=== PATIENT | female | born 1990 | race Caucasian/White ===

== ENCOUNTER 2016-05-01 08:30 | Emergency (ER) | payer SELFPAY ==
--- NOTE | 2016-05-01 09:45 | ER Document Report ---
ED Skin Rash/Insect Bite/Abscs - General Chief Complaint: Abscess Stated Complaint: POSSIBLE CYST Time seen by provider: 09:36 Mode of Arrival: Ambulatory Information source: Patient Notes: Jaci used for history. 25 yo female c/o right vaginal cyst for 2 years. "february-syringe used to get liquid it out-[facility]" She was told to come to the ER to get it taken out. Dx Barotholin Gland cyst. Has since returned to the normal size. It hurts. Has not looked at it directly. No fever. TRAVEL OUTSIDE OF THE [place] IN LAST 30 DAYS: No - Related Data Allergies/Adverse Reactions: No Known Allergies Allergy (Verified 05/01/16 08:37) Past Medical History - Social History Smoking Status: Never Smoker Chew tobacco use (# tins/day): No Frequency of alcohol use: None Drug Abuse: None Family History: None Patient has suicidal ideation: No Patient has homicidal ideation: No Renal/ Medical History: Denies: Hx Peritoneal Dialysis Physical Exam - Vital signs Vitals: Temp Pulse Resp BP Pulse Ox 97.9 F 70 12 112/69 98 05/01/16 08:36 05/01/16 08:36 05/01/16 08:36 05/01/16 08:36 05/01/16 08:36 Interpretation: Normal - General General appearance: Appears well, Alert - HEENT Head: Normocephalic, Atraumatic Eyes: Normal Pupils: PERRL Neck: Supple - Respiratory Respiratory status: No respiratory distress Chest status: Nontender Breath sounds: Normal Chest palpation: Normal - Cardiovascular Rhythm: Regular Heart sounds: Normal auscultation Murmur: No - Genitourinary External exam: Other - right inferior small non red, non firm, no warm bartholin gland swelling, no vaginal discharge - Back Back: Normal, Nontender - Extremities General upper extremity: Normal inspection, Nontender, Normal color, Normal ROM , Normal temperature General lower extremity: Normal inspection, Nontender, Normal color, Normal ROM , Normal temperature, Normal weight bearing. No: Ramses's sign - Neurological Neuro grossly intact: Yes Cognition: Normal Orientation: AAOx4 Shanda Coma Scale Eye Opening: Spontaneous [place] Coma Scale Verbal: Oriented [place] Coma Scale Motor: Obeys Commands [place] Coma Scale Total: 15 Speech: Normal Motor strength normal: LUE, RUE, LLE, RLE Sensory: Normal - Psychological Associated symptoms: Normal affect, Normal mood - Skin Skin Temperature: Warm Skin Moisture: Dry Skin Color: Normal Course - Re-evaluation Re-evalutation: 05/01/16 09:54 is in room for the exam 05/01/16 10:03 jaci used for discharge instructions. 05/01/16 10:06 05/01/16 10:07 I have consulted with the supervisory physician per [facility] Guidelines., dr mohan - Vital Signs Vital signs: Temp Pulse Resp BP Pulse Ox 97.9 F 70 12 112/69 98 05/01/16 08:36 05/01/16 08:36 05/01/16 08:36 05/01/16 08:36 05/01/16 08:36 Discharge - Discharge Clinical Impression: right small bartholin gland cyst Condition: Good Disposition: HOME, SELF-CARE Instructions: Bartholin Gland Cyst or Abscess ([facility]), Ob-Hand Umbrella Ti[facility] Doctors Additional Instructions: schedule appt with obgyn doctor for marsupilalization procedure return to er if it gets larger, warm, red, firm, pus drainage.
[2016-05-01 10:09] VITALS: BP 115/70
== END 2016-05-01 10:09 | disposition home or self-care (01) ==
LOC: ER 08:30
DX: N75.0 Cyst of Bartholin's gland (principal)
CPT/HCPCS: 99282

== ENCOUNTER → 2017-07-24 | Outpatient (CLI) | payer SELFPAY ==
--- NOTE | 2017-07-24 14:02 | RADIOLOGY REPORT (SQ) ---
EXAM DESCRIPTION: U/S OB 14+ TRNABD 1GES W/O DOP COMPLETED DATE/TIME: 07/24/2017 1:26 pm REASON FOR STUDY: ENCTR FOR SUPERVISION OF OTHER NORMAL , SECOND TRIMESTER (Z34.82) Z34.82 ENCOUNTER FOR SUPRVSN OF NORMAL , SECOND TRI COMPARISON: None. TECHNIQUE: Static and Dynamic grayscale imaging performed of gravid uterus using transabdominal appr oach. Additional selected color Doppler and spectral images recorded. All stored on PACS. LIMITATIONS: None. FINDINGS: EGA: 20 weeks 4 days MARISOL: 12/07/2017 EFW: 368+/- 54 grams PERCENTILE: Not calculated LVP: 5.4 cm. PLACENTA: Anterior GRADE: I PRESENTATION: Cephalic. ANATOMY: HEART RATE: 153 beats per minute. FOUR CHAMBER HEART: Visualized. THREE VESSEL CORD: Yes. CORD INSERTION: Visualized. KIDNEYS AND BLADDER: Visualized. Appear normal. STOMACH: Visualized. Appears normal. SPINE: Normal as visualized. BRAIN AND LATERAL VENTRICLES: Visualized. Appear normal. OTHER: No other significant finding. MATERNAL ADNEXA: Maternal ovaries not visualized. CERVICAL LENGTH: 4.5 cm. Closed. OTHER: No other significant finding. IMPRESSION: LIVING INTRAUTERINE . ESTIMATED GESTATIONAL AGE 20 weeks 4 days NO VISUALIZED ANOMALIES. Trimester of : Second trimester - 13 weeks 1 day to 27 weeks 6 days. TECHNICAL DOCUMENTATION: JOB ID: [id number] [employer]- All Rights Reserved Reading location - IP/workstation name: [email or web address]
== END ==
LOC: RAD 12:41
PROVIDERS: ATTEND Nurse Practitioner Women's Health
DX: Z34.82 Encounter for supervision of other normal pregnancy, second trimester (principal)
CPT/HCPCS: 76805

== ENCOUNTER 2017-09-29 21:54 | Outpatient (CLI) | payer SELFPAY ==
[2017-09-30 00:15] LABS: APPEARANCE,URINE CLEAR; BILIRUBIN,URINE NEGATIVE (NEGATIVE); COLOR,URINE STRAW; GLUCOSE, URINE NEGATIVE (NEGATIVE); KETONES,URINE NEGATIVE (NEGATIVE); LEUKOCYTE ESTERASE,URINE TRACE (NEGATIVE); NITRITE,URINE NEGATIVE (NEGATIVE); PROTEIN,URINE NEGATIVE (NEGATIVE); URINE SPECIFIC GRAVITY 1.004; UROBILINOGEN,URINE NEGATIVE mg/dL (<2.0)
[2017-09-30 00:38] LABS: URINE AMPHETAMINES SCREEN NEGATIVE; URINE BARBITURATES SCREEN NEGATIVE; URINE BENZODIAZEPINES SCREEN NEGATIVE; URINE COCAINE SCREEN NEGATIVE; URINE MARIJUANA (THC) SCREEN NEGATIVE; URINE METHADONE SCREEN NEGATIVE; URINE PHENCYCLIDINE SCREEN NEGATIVE
== END 2017-09-29 23:52 | disposition home or self-care (01) ==
LOC: LC 21:54
PROVIDERS: ATTEND Obstetrics & Gynecology Gynecology
PROC: 4A1HXCZ Monitoring of Products of Conception, Cardiac Rate, External Approach (ICD-10-PCS; principal; 2017-09-29)
DX: O47.1 False labor at or after 37 completed weeks of gestation (principal); Z3A.40 40 weeks gestation of pregnancy
CPT/HCPCS: 80307; 81001

== ENCOUNTER 2017-12-01 07:26 | Inpatient (IN) | payer SELFPAY ==
[2017-12-01 08:01] LABS: APPEARANCE,URINE SLIGHTLY-CLOUDY; BILIRUBIN,URINE NEGATIVE (NEGATIVE); COLOR,URINE YELLOW; GLUCOSE, URINE NEGATIVE (NEGATIVE); KETONES,URINE NEGATIVE (NEGATIVE); LEUKOCYTE ESTERASE,URINE SMALL (NEGATIVE); NITRITE,URINE NEGATIVE (NEGATIVE); PROTEIN,URINE NEGATIVE (NEGATIVE); URINE SPECIFIC GRAVITY 1.016; UROBILINOGEN,URINE NEGATIVE mg/dL (<2.0)
[2017-12-01] MEDS ORDERED: OXYTOCIN/NORMAL SALINE 20 UNIT/1,000 ML RTUINJ ONE (08:05)
[2017-12-01] MEDS ORDERED: MISOPROSTOL 0.2 MG TABLET ONE (08:05)
[2017-12-01] MEDS ORDERED: OXYTOCIN 10 UNIT/ML VIAL ONE (08:05)
[2017-12-01] MEDS ORDERED: LIDOCAINE 1% INJ-PF (10 MG/ML) 30 ML SDV ONE (08:05)
[2017-12-01] MEDS ORDERED: RINGERS SOLUTION,LACTATED 1,000 ML IV ONE (08:19)
[2017-12-01] MEDS ORDERED: RINGERS SOLUTION,LACTATED 1,000 ML IV PRN (08:19)
[2017-12-01 08:20] LABS: URINE AMPHETAMINES SCREEN NEGATIVE; URINE BARBITURATES SCREEN NEGATIVE; URINE BENZODIAZEPINES SCREEN NEGATIVE; URINE COCAINE SCREEN NEGATIVE; URINE MARIJUANA (THC) SCREEN NEGATIVE; URINE METHADONE SCREEN NEGATIVE; URINE PHENCYCLIDINE SCREEN NEGATIVE
[2017-12-01 08:53] LABS: ABSOLUTE BASOPHILS # (AUTO) 0.1 10^3/uL (0.0-0.2); ABSOLUTE EOSINOPHILS # (AUTO) 0.1 10^3/uL (0.0-0.6); ABSOLUTE LYMPHOCYTES (AUTO) 1.3 10^3/uL (0.5-4.7); ABSOLUTE MONOCYTES (AUTO) 0.5 10^3/uL (0.1-1.4); ABSOLUTE NEUT (AUTO) 6.1 10^3/uL (1.7-8.2); BASOPHILS % (AUTO) 0.8 % (0-2); EOSINOPHILS % (AUTO) 0.7 % (0-6); HEMOGLOBIN 12.3 g/dL (12.0-15.5); MEAN CORPUSCULAR HEMOGLOBIN 28.4 pg (27.0-33.4); MEAN CORPUSCULAR HGB CONC 33.3 g/dL (32.0-36.0); MEAN CORPUSCULAR VOLUME 85 fl (80-97); MONOCYTES % (AUTO) 6.8 % (3-13); PLATELET COUNT 213 10^3/uL (150-450); RED BLOOD COUNT 4.35 10^6/uL (3.72-5.28); RED CELL DISTRIBUTION WIDTH 15.1 % (11.5-14.0); SEGMENTED NEUTROPHILS % (AUTO) 75.7 % (42-78); TOTAL CELLS COUNTED % (AUTO) 100 %
[2017-12-01] MEDS ORDERED: ACETAMINOPHEN 650 MG SUPP.RECT PR PRN (09:39)
[2017-12-01] MEDS ORDERED: ACETAMINOPHEN WITH CODEINE #3 TABLET PO PRN ×2 (09:39)
[2017-12-01] MEDS ORDERED: DIBUCAINE 1% OINTMENT 28 GM TP PRN (09:39)
[2017-12-01] MEDS ORDERED: OXYTOCIN/NORMAL SALINE 20 UNIT/1,000 ML RTUINJ IV PRN (09:39)
[2017-12-01] MEDS ORDERED: BENZOCAINE/MENTHOL AEROSOL SPRAY 56 ML TOP PRN (09:39)
[2017-12-01] MEDS ORDERED: PROMETHAZINE HCL 25 MG SUPP.RECT PR PRN (09:39)
[2017-12-01] MEDS ORDERED: PROMETHAZINE HCL 25 MG TABLET PO PRN (09:39)
[2017-12-01] MEDS ORDERED: MEASLES,MUMPS&RUBELLA VACC/PF 0.5 ML VIAL SUBCUT PRN (09:39)
[2017-12-01] MEDS ORDERED: ZOLPIDEM TARTRATE 5 MG TABLET PO PRN (09:39)
[2017-12-01] MEDS ORDERED: DIPH/PERTUSS(ACELL)/TETANUS VAC/PF 0.5 ML SYR (>=10YO) IM PRN (09:39)
[2017-12-01] MEDS ORDERED: NA PHOS,M-B/NA PHOS,DI-BA (ADULT) 133 ML ENEMA PR PRN (09:39)
[2017-12-01] MEDS ORDERED: PSEUDOEPHEDRINE HCL 30 MG TABLET PO PRN (09:39)
[2017-12-01] MEDS ORDERED: DIPHENHYDRAMINE HCL 25 MG CAPSULE PO PRN (09:39)
[2017-12-01] MEDS ORDERED: MAGNESIUM HYDROXIDE SUSP 30 ML UDCUP PO PRN (09:39)
[2017-12-01] MEDS ORDERED: GLYCERIN/WITCH HAZEL LEAF 1 EACH MED..PAD TP PRN (09:39)
[2017-12-01] MEDS ORDERED: PROMETHAZINE HCL INJ 25 MG/1 ML VIAL IV PRN (09:39)
[2017-12-01] MEDS ORDERED: IBUPROFEN 800 MG TABLET ONE (09:41)
--- NOTE | 2017-12-01 11:13 | Delivery Summary ---
Del Sum A-C Datetime Report Generated by CPN: 12/01/2017 11:13 DELIVERY PERSONNEL DELIVERY PERSONNEL: [id number] Delivery Doctor:: Mee Coelho CNM Nurse Sports Teacher Certified:: Mee Coelho CNM Labor and Delivery Nurse:: Rita Steele RNsupervisor concrete stone fabricating Nurse:: DIGNA Groves Inventory Specialist Manager/RX SPECIALIST: Judy Lovelace CST Additional Personnel: : Marleni OLIVAREZ RN MATERNAL INFORMATION Delivery Anesthesia: None Medications After Delivery: Pitocin Bolus-Please Comment Meds After Delivery Comment: Pitocin 20 units in 1000 ml nss open for bolus after delivery of placenta Maternal Complications: None Provider Comments: ANGI VIABLE MALE , CORD DOUBLE CLAMPED AND CUT. SPONTANEOUS PLACENTA INTACT WITH 3VC. NO LACERATIONS. MOTHER AND INFANT STABLE IN LABOR AND DELIVERY #7 LABOR SUMMARY EDC: 12/16/2017 00:00 No. Babies in Womb: 1 Attempted: No Labor Anesthesia: None LABOR INFORMATION Reason for Induction: Not Applicable Onset of Labor: 12/01/2017 05:00 Complete Dilatation: 12/01/2017 07:48 Oxytocin: N/A Group B Beta Strep: NEGATIVE Steroids Given: None Reason Steroids Not Administered: Not Applicable MEMBRANES Membranes Rupture Method: Artificial Rupture of Membranes: 12/01/2017 08:16 Length of Rupture (hr): 0.87 Amniotic Fluid Color: Clear Amniotic Fluid Amount: Moderate Amniotic Fluid Odor: Normal STAGES OF LABOR Stage 1 hr: 2 Stage 1 min: 48 Stage 2 hr: 1 Stage 2 min: 20 Stage 3 hr: 0 Stage 3 min: 8 Total Time in Labor hr: 4 Total Time in Labor min: 16 VAGINAL DELIVERY Episiotomy: None Laceration #1: None Laceration Extension #1: N/A Laceration Repair: Not Applicable Sponge Count Correct: N/A Sharps Count Correct: N/A CSECTION DELIVERY Primary Indication: N/A Secondary Indication: N/A CSection Incidence: N/A Labor: N/A Elective: N/A CSection Incision: N/A BABY A INFORMATION Infant Delivery Date/Time: 12/01/2017 09:08 Method of Delivery: Vaginal Born in Route : No : N/A Forceps: N/A Vacuum Extraction: N/A Shoulder Dystocia : No PRESENTATION/POSITION BABY A Presentation: Cephalic Cephalic Presentation: Vertex Vertex Position: Left Occipital Anterior Breech Presentation: N/A PLACENTA INFORMATION BABY A Placenta Delivery Time : 12/01/2017 09:16 Placenta Method of Delivery: Spontaneous Placenta Status: Delivered SCORES BABY A Heart Rate 1 min: >100 bpm Resp Effort 1 min: Good Cry Reflex Irritability 1 min: Cough or Sneeze or Pulls Away Muscle Tone 1 min: Active Motion Color 1 min: Body [place], Extremities Blue Resuscitation Effort 1 min: Tactile Stimulation SCORE 1 MIN: 9 Heart Rate 5 min: >100 bpm Resp Effort 5 min: Good Cry Reflex Irritability 5 min: Cough or Sneeze or Pulls Away Muscle Tone 5 min: Active Motion Color 5 min: Body [place], Extremities Blue Resuscitation Effort 5 min: N/A SCORE 5 MIN: 9 INFORMATION BABY A Gestational Age at Delivery: 37.6 Gestational Status: Early Term- 37- 38.6 Weeks Infant Outcome : Liveborn Condition : Stable Infant Sex: Male IDENTIFICATION BABY A Verification Date/Time: 12/01/2017 09:27 ID Band Number: [id number] Mother's Name Verified: Yes RN Verifying : Nathanael Steele RN Additional Verifying Personnel: Halima Olivarez RN WEIGHT/LENGTH BABY A Birthweight (gm): 3780 Infant Weight (lb): 8 Infant Weight (oz): 5 Length (in): 21.00 Length (cm): 53.34 CORD INFORMATION BABY A No. Cord Vessels: 3 Nuchal Cord : N/A Cord Blood Taken: Yes-For Eval (Mom's Blood Type - or O+) Infant Suction: None ASSESSMENT BABY A Complications: Meconium Infant Complications- Other: terminal mec noted Physical Findings at Delivery: Within Normal Limits Respirations: Appears Normal Skin to Skin: Yes Wet Pour Supervisor/ALS Called : No Infant Care By: Padmini Steele RN/ S Camp RNC Transferred To: Remains with Mother BABY B INFORMATION : N/A SIGNATURES Assignment: Mickie Daly MD Signature: with User ID: [email or web address] : with User ID: [email or web address] : I was personally available for consultation and serving as supervising physician for the MLP.
--- NOTE | 2017-12-01 12:51 | Admission Physical ---
Datetime Report Generated by CPN: 12/01/2017 12:51 CURRENT ADMISSION Chief Complaint: Uterine Contractions Indication for Induction: Not Applicable Admit Impression : Term, Intrauterine Admit Plan: Admit to Unit; Initiate Labor Protocol ALLERGIES Medication Allergies: No Medication Allergies: No Known Allergies (09/29/2017) Latex: No Latex Allergies OBSTETRICAL HISTORY EDC: 12/16/2017 00:00 : 3 Para: 2 Term: 2 : 0 SAB: 0 IAB: 0 Ectopic: 0 Livin Cesareans: 0 VBACs: 0 Multiple Births: 0 Gestational Diabetes: No Rh Sensitization: No Incompetent Cervix: No YASMIN: No Infertility: No ART Treatment: No Uterine Anomaly: No IUGR: No Hx Previous C/S: No Macrosomia: No Hx Loss/Stillborn: No PIH: No Hx : No Placenta Previa/Abruption: No Depression/PP Depression: No PTL/PROM: No Post Hemorrhage: No Current Procedures: NST; GAS TRANSFER OPERATOR Obstetrical History Comments: G-1- G-2 G-3 late to care SEE RECORDS Alcohol: No Marijuana : No Cocaine: No Other Illicit Drugs: No Cigarettes: Never Smoker. [id number] MEDICAL HISTORY Diabetes: No Blood Transfusion: No Pulmonary Disease (Asthma, TB): No Breast Disease: No Hypertension: No Ribbon Lapper Tender Surgery: No Heart Disease: No Hosp/Surgery: No Autoimmune Disorder: No Anesthetic Complications: No Kidney Disease: No Abnormal Pap Smear: No Neuro/Epilepsy: No Psychiatric Disorders: No Other Medical Diseases: No Hepatitis/Liver Disease: No Significant Family History: No Varicosities/Phlebitis: No Trauma/Violence : No Thyroid Dysfunction: No INFECTIOUS HISTORY Gonorrhea: No Genital Herpes: No Chlamydia: No Tuberculosis: No Syphilis: No Hepatitis: No HIV/AIDS Exposure: No Rash or Viral Illness: No HPV: No PHYSICAL EXAM General: Normal HEENT: Normal Neurologic: Normal Thyroid: Deferred Heart: Normal Lungs: Normal Breast: Deferred Back: Normal Abdomen: Normal Genitourinary Exam: Normal Extremities: Normal DTRs: Deferred Pelvic Type: Adequate Physical Exam Comments: pelvis proven to 8lb FETUS A EGA: 37.6 FHR- Baseline: 150 Variability: Moderate 6-25bpm Accelerations: 15X15 Decelerations: None FHR Category: Category I Estimated Weight (gm): 3300 Presentation: Vertex Admit Comment: admitted at 37w6d for active labor. cx c/c/bbow on admission. GBS neg PLANS FOR LABOR AND DELIVERY Labor and Delivery: None Pain Management: None; Epidural Feeding Preference: Both Benefit of Breast Feed Discussed: Yes Circumcision: N/A INFORMED CONSENT Assignment: Mickie Daly MD Signature: with User ID: [email or web address] : with User ID: [email or web address]
[2017-12-01] MEDS: SENNOSIDES/DOCUSATE 8.6-50 MG 1 EACH TABLET PO SCH (13:46)
[2017-12-01] MEDS: DOCUSATE SODIUM 100 MG CAPSULE PO SCH ×2 (13:46→17:09)
[2017-12-01] MEDS: FAMOTIDINE 20 MG TABLET PO SCH ×2 (13:46→22:12)
[2017-12-01] MEDS: FERROUS SULFATE 325 MG TABLET PO SCH ×2 (13:46→17:09)
[2017-12-01] MEDS: PRENATAL VITAMIN W DHA CAPSULE PO SCH (13:46)
[2017-12-01] MEDS: IBUPROFEN 800 MG TABLET PO SCH ×2 (13:54→22:12)
[2017-12-02] MEDS: IBUPROFEN 800 MG TABLET PO SCH ×3 (06:04→21:32)
[2017-12-02 08:17] LABS: HEMATOCRIT 35.1 % (36.0-47.0); HEMOGLOBIN 11.7 g/dL (12.0-15.5); MEAN CORPUSCULAR HEMOGLOBIN 28.5 pg (27.0-33.4); MEAN CORPUSCULAR HGB CONC 33.4 g/dL (32.0-36.0); MEAN CORPUSCULAR VOLUME 85 fl (80-97); PLATELET COUNT 214 10^3/uL (150-450); RED BLOOD COUNT 4.11 10^6/uL (3.72-5.28); RED CELL DISTRIBUTION WIDTH 15.5 % (11.5-14.0)
--- NOTE | 2017-12-02 08:56 | PDOC PROGRESS REPORT ---
Subjective-OB Progress Note for:: 12/02/17 Subjective: baby, no c/o Physical Exam (OB) Vital Signs: Temp Pulse Resp BP Pulse Ox 97.5 F 54 L 18 99/61 L 98 12/02/17 07:25 12/02/17 07:25 12/02/17 07:25 12/02/17 07:25 12/02/17 07:25 Intake & Output 12/01/17 12/02/17 12/03/17 06:59 06:59 06:59 Intake Total 600 Balance 600 Weight 58.06 kg - Lochia Lochia Amount: Small 10-25 ml Lochia Color: Rubra/Red - Abdomen Description: Soft, Round Hernia Present: No Fundal Description: Firm, Midline Fundal Height: u/u - u/2 Objective-Diagnostic Laboratory: 12/02/17 07:46 12/01/17 12/01/17 12/02/17 08:37 08:37 07:46 WBC 8.0 7.0 RBC 4.35 4.11 Hgb 12.3 11.7 L Hct 37.0 35.1 L MCV 85 85 MCH 28.4 28.5 MCHC 33.3 33.4 RDW 15.1 H 15.5 H Plt Count 213 214 Seg Neutrophils % 75.7 Lymphocytes % 16.0 Monocytes % 6.8 Eosinophils % 0.7 Basophils % 0.8 Absolute Neutrophils 6.1 Absolute Lymphocytes 1.3 Absolute Monocytes 0.5 Absolute Eosinophils 0.1 Absolute Basophils 0.1 Blood Type O POSITIVE Antibody Screen NEGATIVE Assessment and Plan(PN) - Assessment and Plan (1) Delivery normal Is this a current diagnosis for this admission?: Yes (2) Insufficient care Qualifiers: Trimester: unspecified trimester Qualified Code(s): O09.30 - Supervision of with insufficient care, unspecified trimester Is this a current diagnosis for this admission?: Yes (3) Positive GBS test Is this a current diagnosis for this admission?: Yes - Time Spent with Patient Time with patient: Less than 15 minutes Medications reviewed and adjusted accordingly: Yes - Disposition Anticipated Discharge: Home Within: within 24 hours
[2017-12-02] MEDS: FAMOTIDINE 20 MG TABLET PO SCH ×2 (10:08→21:32)
[2017-12-02] MEDS: FERROUS SULFATE 325 MG TABLET PO SCH ×2 (10:08→17:45)
[2017-12-02] MEDS: SENNOSIDES/DOCUSATE 8.6-50 MG 1 EACH TABLET PO SCH (10:08)
[2017-12-02] MEDS: PRENATAL VITAMIN W DHA CAPSULE PO SCH (10:08)
[2017-12-02] MEDS: DOCUSATE SODIUM 100 MG CAPSULE PO SCH ×2 (10:08→17:45)
[2017-12-02 20:47] VITALS: BP 114/77
[2017-12-03] MEDS: IBUPROFEN 800 MG TABLET PO SCH (06:12)
--- NOTE | 2017-12-03 09:32 | PDOC DISCHARGE SUMMARY ---
Final Diagnosis Discharge Date: 12/03/17 - Final Diagnosis (1) Insufficient care Is this a current diagnosis for this admission?: Yes (2) Positive GBS test Is this a current diagnosis for this admission?: Yes (3) Is this a current diagnosis for this admission?: Yes Discharge Data - Discharge Medication Home Medications: Vits96/Iron Fum/Folic [ Tablet] 1 tab PO DAILY 01/02/15 Reason(s) for Admission: Onset of Labor Procedures: NST Intrapartum Procedure(s): Spontaneous Vaginal Delivery Complication(s): Laceration-Perineal Laceration-Degree: 1st - Diagnosis Test Laboratory: Temp Pulse Resp BP Pulse Ox 98.4 F 63 18 114/77 98 12/02/17 20:46 12/02/17 20:46 12/02/17 20:46 12/02/17 20:46 12/02/17 20:46 12/01/17 12/01/17 12/02/17 07:34 08:37 07:46 RBC 4.35 4.11 Hgb 12.3 11.7 L Hct 37.0 35.1 L Urine Opiates Screen NEGATIVE - Discharge information/Instructions Discharge Activity: No Lifting Over 10 Pounds, No Lifting/Push/Pulling, Pelvic Rest Discharge Diet: Regular Disposition: HOME, SELF-CARE Follow up with: [facility] in: 3
== END 2017-12-03 10:50 | disposition home or self-care (01) | DRG 775 ==
LOC: LC 07:26 → LR 08:07 → 2S 11:29
PROVIDERS: ADMIT Student in an Organized Health Care Education/Training Program; ATTEND Student in an Organized Health Care Education/Training Program
PROC: 10E0XZZ Delivery of Products of Conception, External Approach (ICD-10-PCS; principal; 2017-12-01)
PROC: 10907ZC Drainage of Amniotic Fluid, Therapeutic from Products of Conception, Via Natural or Artificial Opening (ICD-10-PCS; 2017-12-01)
PROC: 4A1HXCZ Monitoring of Products of Conception, Cardiac Rate, External Approach (ICD-10-PCS; 2017-12-01)
DX: O99.824 Streptococcus B carrier state complicating childbirth (principal); O77.0 Labor and delivery complicated by meconium in amniotic fluid; Z3A.37 37 weeks gestation of pregnancy; Z37.0 Single live birth
CPT/HCPCS: 36415; 80307; 81005; 85025; 85027; 86592; 86850; 86900; 86901; J2590; J3490